=== PATIENT | female | born 2000 | race African-American/Black ===

== ENCOUNTER 2023-04-12 07:10 | Emergency (ER) | payer MEDICAID ==
[~2023-04-12] VITALS: Ht 152.4 cm; Wt 59.0 kg
[2023-04-12 07:20] VITALS: BP 135/75
[2023-04-12] MEDS ORDERED: OLOP2.5D12 EACHEYE (07:34)
[2023-04-12] MEDS ORDERED: CETI10CA2 PO (07:34)
[2023-04-12] MEDS ORDERED: FLUT9.9S BOTHNSTRLS (07:34)
== END 2023-04-12 08:28 | disposition home or self-care (01) ==
LOC: ER 07:10
DX: R68.89 Other general symptoms and signs (principal); J45.909 Unspecified asthma, uncomplicated
CPT/HCPCS: 99281

== ENCOUNTER 2023-08-22 01:33 | Emergency (ER) | payer BC, MEDICAID ==
[~2023-08-22] VITALS: Ht 152.4 cm; Wt 70.4 kg
[~2023-08-22 01:33] MED LIST: CETI10CA2 PO; FLUT9.9S BOTHNSTRLS; OLOP2.5D12 EACHEYE
[2023-08-22 01:46] VITALS: O2SAT 100
[2023-08-22 05:23] LABS: CLARITY URINE TURBID (CLEAR); COLOR URINE YELLOW (YELLOW); GLUCOSE URINE NEGATIVE (NEGATIVE); KETONES URINE 1+ (NEGATIVE); LEUKOCYTE ESTERASE URINE 3+ (NEGATIVE); NITRITE URINE NEGATIVE (NEGATIVE); OCCULT BLOOD URINE NEGATIVE (NEGATIVE); PH URINE 6.5 (4.5-8.0); PROTEIN URINE TRACE (NEGATIVE); SPECIFIC GRAVITY URINE 1.017 (1.005-1.030)
[2023-08-22 05:28] LABS: BASOPHILS % 0.7 % (0.0-2.0); DIFFERENTIAL COMMENT 0; EOSINOPHILS % 2.5 % (0.0-5.0); HEMATOCRIT. 33.4 % (36.0-48.0); HEMOGLOBIN. 10.5 g/dL (12.0-16.0); LYMPHOCYTES % 31.7 % (20.0-50.0); MEAN CORPUSCULAR HEMOGLOBIN 23.2 pg (28.0-32.0); MEAN CORPUSCULAR HGB CONC 31.5 g/dL (31.0-37.0); MEAN CORPUSCULAR VOLUME 73.5 fL (81.0-99.0); MONOCYTES % 7.8 % (2.0-8.0); NEUTROPHILS % 57.3 % (40.0-76.0); PLATELET 345 x1000/uL (130-400); RED BLOOD CELL COUNT 4.55 mill/uL (4.2-5.4); RED CELL DISTRIBUTION WIDTH 15.6 % (11.6-14.6); WHITE BLOOD COUNT 7.9 x1000/uL (4.5-11.0)
[2023-08-22 05:49] LABS: CHLORIDE 107 mEq/L (98-107); INDEX HEMOLYSI 1 (1-3); INDEX ICTERIC 1 (1-4); INDEX LIPEMIC 1 (1-3); POTASSIUM 3.7 mEq/L (3.5-5.1); SODIUM 135 mEq/L (136-145)
[2023-08-22 05:58] LABS: ALANINE AMINOTRANSFERASE 22 IU/L (13-61); ALBUMIN 3.3 g/dL (3.4-5.0); ASPARTATE AMINOTRANSFERASE 15 IU/L (15-37); BILIRUBIN TOTAL 0.3 mg/dL (0.1-1.0); CALCIUM 8.9 mg/dL (8.5-10.1); CARBON DIOXIDE 24 mEq/L (21-32); CREATININE 0.4 mg/dL (0.6-1.3); GLUCOSE 98 mg/dL (70-105); PROTEIN TOTAL 8.2 g/dL (6.0-8.3); UREA NITROGEN BLOOD 4 mg/dL (7-21)
[2023-08-22 05:58] LABS: *AMPHETAMINES SCREEN URINE NEGATIVE (NEGATIVE); *BARBITURATES SCREEN URINE NEGATIVE (NEGATIVE); *BENZODIAZEPINES SCREEN URINE NEGATIVE (NEGATIVE); *COCAINE SCREEN URINE NEGATIVE (NEGATIVE); CANNABINOID URINE SCREEN NEGATIVE (NEGATIVE); ECSTASY MDMA SCREEN URINE NEGATIVE (NEGATIVE); OPIATES URINE SCREEN NEGATIVE (NEGATIVE); PHENCYCLIDINE URINE SCREEN NEGATIVE (NEGATIVE)
[2023-08-22 06:15] LABS: BACTERIA URINE 2+; RBC URINE NONE SEEN /hpf (0-2); SQUAMOUS EPITHELIAL CELL URINE 1+ /lpf (RARE/1+)
[2023-08-22] MEDS: CEPHALEXIN 250MG CAPSULE PO NR ×2 (06:17→08:06)
[2023-08-22] MEDS: ACETAMINOPHEN 325MG TABLET PO PRN ×2 (06:18→08:06)
[2023-08-22] MEDS ORDERED: ACET-2708 MT (06:27)
[2023-08-22] MEDS ORDERED: CEPH500C2 MT (06:27)
[2023-08-22 08:07] LABS: B-HCG QUANTITATIVE 94088 mIU/mL (<3)
[2023-08-22 08:16] VITALS: BP 111/74; PULSE 99; RESP 18; TEMP 99.4
== END 2023-08-22 08:20 | disposition home or self-care (01) ==
LOC: ER 01:33
DX: O23.41 Unspecified infection of urinary tract in pregnancy, first trimester (principal); N39.0 Urinary tract infection, site not specified; Z3A.10 10 weeks gestation of pregnancy
CPT/HCPCS: 80053; 80305; 81003; 81025; 84702; 85025; 86850; 86900; 86901; 36415; 76801; 99284; Z7610 ×2